=== PATIENT | female | born 1980 | race Caucasian/White ===

== ENCOUNTER 2022-10-25 08:45 | Emergency (ER) | payer OTHER, SELFPAY ==
[2022-10-25 08:52] VITALS: BP 109/79; PULSE 70; O2SAT 99; BMI 27.4
--- NOTE | 2022-10-25 09:02 | CRLHL7_ITS ---
For Patients: As a result of the Century Cures Act, medical imaging exams and procedure reports are released immediately into your electronic medical record. You may view this report before your referring provider. If you have questions, please contact your health care provider. INDICATION: LBP RIGHT SIDE TECHNIQUE: CT abdomen and pelvis without contrast, stone protocol. COMPARISON: None. FINDINGS: Kidney/ureters: Kidneys are normal in caliber. Obstructive uropathy with a 5 all mm stone at the distal right UVJ resulting and mild hydroureteronephrosis and periureteral inflammation. No additional intrarenal calculi are seen. No left hydronephrosis. The bladder is decompressed. Liver/gallbladder/bile ducts: The liver is normal in size, shape and attenuation. Gallbladder is normal without visualized stones or inflammation. No biliary dilatation. Spleen/pancreas/adrenal glands: The spleen, adrenal glands and pancreas are within normal limits. GI tract: The bowel is unremarkable. Normal appendix. Abdominal wall/omentum/peritoneum: No free air or significant free fluid. No mass or inflammation. Lymph nodes: No lymphadenopathy. Pelvis: Unremarkable pelvis. Lower chest: Unremarkable. IMPRESSION: Obstructive uropathy with a 5 mm stone at the distal right UVJ resulting and mild hydroureteronephrosis and periureteral inflammation. Please note that all CT scans at this facility use dose modulation, iterative reconstruction, and/or weight-based dosing when appropriate to reduce radiation dose to as low as reasonably achievable. Dictated by Edu Noble MD @ 10/25/2022 10:19:45 AM (Electronically Signed)
[2022-10-25 09:10] LABS: Basophils Absolute Auto 0.01 K/uL (0.00-0.30); Basophils Percent Auto 0.1 % (0.0-3.0); Eosinophils Absolute Auto 0.05 K/uL (0.00-0.50); Eosinophils Percent Auto 0.7 % (0.0-7.0); Hematocrit 40.3 % (33.0-51.0); Hemoglobin* 13.4 gm/dL (12.0-16.0); Immature Granulocytes Abs Auto 0.01 K/uL (0.00-0.30); Immature Granulocytes Pct Auto 0.1 %; Lymphocytes Absolute Auto 2.51 K/uL (0.90-2.90); Lymphocytes Percent Auto 35.7 % (20-44); Mean Corpuscular HGB Conc 33 gm/dL (32-36); Mean Corpuscular Hemoglobin 30 pg (26-34); Mean Corpuscular Volume 90 fL (80-100); Monocytes Percent Auto 8.5 % (0.0-11.0); Neutrophils Absolute Auto 3.86 K/uL (1.7-7.0); Neutrophils Percent Auto 54.9 % (42.0-72.0); Platelet Count* 335 K/uL (140-440); RDW Coefficient of Variation % 12.7 % (11.5-15.5); Red Blood Count 4.48 m/uL (4.00-5.20); White Blood Count* 7.04 K/uL (4.50-11.00)
[2022-10-25 09:11] LABS: Slide Review Reflex No
[2022-10-25] MEDS: ONDANSETRON 2 MG/ML inj 4 MG IVP (09:15)
[2022-10-25] MEDS: HYDROmorphone 0.5 mg/0.5 ml inj IVP ×2 (09:15→10:00)
[2022-10-25] MEDS: 0.9 % SODIUM CHLORIDE 1000 ml 1,000 ML IV ×2 (09:16→10:40)
[2022-10-25] MEDS: KETOROLAC 30 MG/ML inj IVP (09:16)
[2022-10-25 09:26] LABS: Albumin* 4.3 g/dL (3.3-5.0); Chloride* 110 mmol/L (96-114)
[2022-10-25 09:27] LABS: Potassium* 3.7 mmol/L (3.6-5.1); Sodium* 139 mmol/L (135-149)
[2022-10-25 09:29] LABS: Alkaline Phosphatase* 71 U/L (40-150); Aspartate Amino Transferase* 21 U/L (12-35); Bilirubin Direct* 0.1 mg/dL (0.0-0.5); Bilirubin Total* 0.4 mg/dL (0.1-1.5); Blood Urea Nitrogen* 15 mg/dL (5-24); Carbon Dioxide* 18 mmol/L (20-32); Creatinine* 0.8 mg/dL (0.5-1.5); Est. Creatinine Clearance* 73.93; Estimated Glomerular Filt Rate 95 ml/min; Glucose* 139 mg/dL (60-115); Total Protein* 7.4 g/dL (6.0-8.3)
[2022-10-25 09:30] LABS: Alanine Aminotransferase* 19 U/L (4-35); Calcium* 9.1 mg/dL (8.4-10.6); HCG Qualitative Serum* Negative (Negative); Lipase* 53 U/L (23-300)
--- NOTE | 2022-10-25 09:35 | ED_ITS ---
HPI - General Adult General Date Seen: 10/25/22 Chief complaint: Back Injury/Pain Stated complaint: Severe low back RT bag Time Seen by Provider: 10/25/22 09:00 Source: patient Mode of arrival: ambulatory Limitations: no limitations History of Present Illness HPI narrative: Patient is a very nice 42-year-old female presents here with acute onset of right flank pain radiating to her right groin, this started approximately an hour ago, she can not get feeling well, nausea associated with this but no vomiting. She I find her in some degree of pain, in room 3. She denies any numbness tingling weakness, nausea, she felt well up until this pain started, she has no previous history of this in her past. Denies any dysuria frequency fevers chills or sweats, diarrhea, or blood in her urine. She did not take anything for the pain,, promptly came to the emergency room. Related Data Home Medications Medication Instructions Recorded Confirmed dupilumab 300 mg/2 mL subcutaneous 300 mg subcut .as Direc 08/27/22 08/27/22 syringe Previous Rx's Medication Instructions Recorded etonogestrel 0.12 mg-ethinyl 1 vag ring vaginal Q3W #3 ea 08/27/22 estradiol 0.015 mg/24 hr vaginal ring sumatriptan succinate 50 mg tablet 50 mg PO .As Needed as needed PRN 08/27/22 migraine headache #30 tabs Allergies Allergy/AdvReac Type Severity Reaction Status Date / Time No Known Drug Allergies Allergy Verified 08/27/22 09:14 Review of Systems Status of ROS: Reports: 10 or more systems reviewed and unremarkable except as noted in History and below PFSH PFSH Surgical History History of bilateral breast reduction surgery (2002) ?Z98.890 - Other specified postprocedural states (ICD-10) History of wisdom tooth extraction ?K08.409 - Partial loss of teeth, unspecified cause, unspecified class (ICD- 10) Family History Aunt Breast cancer Father Alcohol dependence Brother Alcohol dependence Maternal Grandfather Brain cancer Maternal Grandmother Pancreatic cancer Social History Narrative: . 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 Social EtOH. Smoking Status: Never smoker Little interest or pleasure in doing things: not at all Feeling down, depressed, or hopeless: not at all Exam Narrative: Exam Narrative: Patient is in room 3, on her side, she can not get comfortable, pupils are equal round reactive to light, no scleral icterus redness TMs normal oropharynx normal, neck is supple full range of motion chest is clear, no wheezing crackles noted heart sounds are normal, abdomen is nontender, no Ram sign, no organomegaly, no CVA tenderness, she moves her extremities independently well no swelling, normal pulses, normal sensation, and normal muscle bulk. Const: Vital Signs, click to edit/add: Vital Signs - 24 hr 10/25/22 08:52 Pulse Rate [Pulse Oximeter] 70 Blood Pressure [Ri ght Upper Arm] 109/79 Pulse Oximetry 99 Oxygen Delivery Me thod Room Air Course Course Hospital Course: Patient improved with the pain medication here she received IV Toradol, Zofran, and Dilaudid, I think on reviewing her course, exam, laboratory and radiology findings, we could treat her as an outpatient as she should pass the stone, I explained this to her and where the stone was,. An over with her the risks of going home, including increasing pain fevers chills or infection, if these occur she will come back and be seen. Otherwise I think she will passed the stone quite easily. Give her some Percocet for augment her pain. We went over the risks benefits and side effects of this. Vital Signs Vital signs: Initial Vital Signs Pulse Rate 70 10/25/22 08:52 Blood Pressure 109/79 10/25/22 08:52 Blood Pressure Mean 89 10/25/22 08:52 Blood Pressure Position Left Lateral 10/25/22 08:52 Pulse Oximetry 99 10/25/22 08:52 Oxygen Delivery Method Room Air 10/25/22 08:52 Vital Signs Pulse Rate 70 10/25/22 08:52 Blood Pressure 109/79 10/25/22 08:52 Pulse Oximetry 99 10/25/22 08:52 Oxygen Delivery Method Room Air 10/25/22 08:52 Pulse Rate 70 10/25/22 08:52 Blood Pressure 109/79 10/25/22 08:52 Pulse Oximetry 99 10/25/22 08:52 Oxygen Delivery Method Room Air 10/25/22 08:52 Medical Decision Making MDM Narrative Medical decision making narrative: During the evaluation of this patient I considered multiple differential diagnosis including life-threatening differentials which are appendicitis, aortic aneurysm, mesenteric ischemia, bowel perforation, ectopic , volvulus and bowel obstruction, other differential diagnosis include but are not limited to inflammatory bowel disease, cholecystitis, pancreatitis, hepatitis, gastritis, GERD, diverticulitis, peptic ulcer disease, pyelonephritis/UTI, renal colic/stone, pelvic inflammatory disease, cervicitis, endometritis, intrauterine , dysfunctional uterine bleeding, ovarian cyst/torsion, spontaneous as well as other etiologies Lab Data Lab results reviewed: Yes I reviewed the patient's lab results Labs: Lab Results 10/25/22 Range/Units 09:00 WBC 7.04 (4.50-11.00) K/uL RBC 4.48 (4.00-5.20) m/uL Hgb 13.4 (12.0-16.0) gm/dL Hct 40.3 (33.0-51.0) % MCV 90 (80-100) fL MCH 30 (26-34) pg MCHC 33 (32-36) gm/dL RDW Coeff of Pee 12.7 (11.5-15.5) % Plt Count 335 (140-440) K/uL Neut % (Auto) 54.9 (42.0-72.0) % Lymph % (Auto) 35.7 (20-44) % [place] % (Auto) 8.5 (0.0-11.0) % Eos % (Auto) 0.7 (0.0-7.0) % Baso % (Auto) 0.1 (0.0-3.0) % Neut # (Auto) 3.86 (1.7-7.0) K/uL Lymph # (Auto) 2.51 (0.90-2.90) K/uL [place] # (Auto) 0.60 (0.00-0.90) K/UL Eos # (Auto) 0.05 (0.00-0.50) K/uL Baso # (Auto) 0.01 (0.00-0.30) K/uL Sodium 139 (135-149) mmol/L Potassium 3.7 (3.6-5.1) mmol/L Chloride 110 (96-114) mmol/L Carbon Dioxide 18 L (20-32) mmol/L BUN 15 (5-24) mg/dL Creatinine 0.8 (0.5-1.5) mg/dL Estimated Creat Clear 73.93 Estimated GFR 95 ml/min Glucose 139 H (60-115) mg/dL Calcium 9.1 (8.4-10.6) mg/dL Total Bilirubin 0.4 (0.1-1.5) mg/dL Direct Bilirubin 0.1 (0.0-0.5) mg/dL AST 21 (12-35) U/L ALT 19 (4-35) U/L Alkaline Phosphatase 71 (40-150) U/L Total Protein 7.4 (6.0-8.3) g/dL Albumin 4.3 (3.3-5.0) g/dL Lipase 53 (23-300) U/L HCG, Qual Negative (Negative) Imaging Data CT scan - abdomen: Attestation: I have reviewed the pertinent imaging results. My impression: Right-sided moderate hydro from nephrosis, there is the 4-5 mm stone in the right ureter, at the UVJ. Radiology read pending Radiologist's impression: Patient: VARGAS JORDAN Facility:?[facility] Patient ID:?[id number] Site Patient ID:?[id number]. Site :?[id number] Study:?CT Abdomen/Pelvis STONE STUDY-10/25/2022 9:48:40 AM Ordering Physician:Lolita Renae Final Report: INDICATION: LBP RIGHT SIDE TECHNIQUE: CT abdomen and pelvis without contrast, stone protocol. COMPARISON: None. FINDINGS: Kidney/ureters: Kidneys are normal in caliber. Obstructive uropathy with a 5 all mm stone at the distal right UVJ resulting and mild hydroureteronephrosis and periureteral inflammation. No additional intrarenal calculi are seen. No left hydronephrosis. The bladder is decompressed. Liver/gallbladder/bile ducts: The liver is normal in size, shape and attenuation. Gallbladder is normal without visualized stones or inflammation. No biliary dilatation. Spleen/pancreas/adrenal glands: The spleen, adrenal glands and pancreas are within normal limits. GI tract: The bowel is unremarkable. Normal appendix. Abdominal wall/omentum/peritoneum: No free air or significant free fluid. No m ass or inflammation. Lymph nodes: No lymphadenopathy. Pelvis: Unremarkable pelvis. Lower chest: Unremarkable. IMPRESSION: Obstructive uropathy with a 5 mm stone at the distal right UVJ resulting and mild hydroureteronephrosis and periureteral inflammation. Please note that all CT scans at this facility use dose modulation, iterative reconstruction, and/or weight-based dosing when appropriate to reduce radiation dose to as low as reasonably achievable. Dictated by Edu Noble MD @ 10/25/2022 10:19:45 AM (Electronic Signature) Discharge Plan Discharge Clinical Impression: Renal colic Patient Disposition: Home w/ Parent or Adult Condition: Improved Instructions: Renal Colic (ED) Additional Instructions: Home rest ibuprofen 800 mg p.o. t.i.d. for the next 3 days. Zofran for nausea, Percocet for breakthrough pain. Would recommend rest, generous fluids, return here should be initiated if increasing abdominal pain, nausea vomiting, fever or intractable pain not relieved by medications. I believe there is a very high chance he will pass the stone on its own, there is no other kidney stones seen, for alone kidney stone common a first-time person, we do not recommend primary urology consult, you can obtain this if you want. While taking the narcotic medications please do not drive, do not use alcohol, and be off work for the next 48 hours. Please know that repeated use of narcotic medications can lead to addiction. Activity Level: No Restrictions Prescriptions: No Action dupilumab 300 mg/2 mL syringe 300 mg subcut .as Direc Rx Instructions: Inject 300 MG EVEYR OTHER WEEK etonogestrel-ethinyl estradiol 0.12-0.015 mg/24 hr ring 1 vag ring vaginal Q3W Qty: 3 4RF sumatriptan succinate 50 mg tablet 50 mg PO .As Needed as needed PRN (Reason: migraine headache) Qty: 30 4RF Rx Instructions: ONE TAB AT ONSET OF HEADACHE, MAY REPEAT Q2H PRN, MAX 200 MG/24 HRS Follow Up/Referrals: Jeronimo Hill MD [Primary Care Provider] - Stand Alone Forms: Neema Info Instructions
== END 2022-10-25 12:24 | disposition home or self-care (01) ==
PROVIDERS: Emergency Provider Family Medicine; PCP Family Medicine
DX: N23 Unspecified renal colic (principal)
CPT/HCPCS: 36415; 74176; 80048; 80076; 81001; 83690; 84703; 85025; 96374; 96375; 96376; 99284; J1170; J1885; J2405; J7030

== ENCOUNTER 2023-01-22 10:01 | Outpatient (CLI) | payer OTHER, SELFPAY ==
--- NOTE | 2023-01-22 10:15 | CRLHL7_ITS ---
For Patients: As a result of the Century Cures Act, medical imaging exams and procedure reports are released immediately into your electronic medical record. You may view this report before your referring provider. If you have questions, please contact your health care provider. BILATERAL SCREENING MAMMOGRAM WITH COMPUTER-AIDED DETECTION AND TOMOSYNTHESIS TECHNIQUE: CC and MLO views were obtained. These mammographic images have been obtained using full-field digital technique. These mammographic images were interpreted with the benefit of computer-aided detection. Breast Tomosynthesis was used in this interpretation. COMPARISON FILM: Baseline. FINDINGS: The breasts are heterogeneously dense, which may obscure small masses IMPRESSION: There is no radiographic evidence for malignancy. ASSESSMENT: BI-RADS Category 1: Negative RECOMMENDATION: Routine screening mammogram in 1 year. A lay language report of this examination will be provided to the patient. Kalpesh Sandoval M.D. Diagnostic Radiologist [email or web address] [email or web address] Transcribed: 4:06 p.blaire ortega/Dictated by: Kalpesh Sandoval MD @ 01/22/2023 1:58:00 PM (Electronically Signed)
== END 2023-01-22 10:02 | disposition home or self-care (01) ==
LOC: MAMMO 10:02
PROVIDERS: PCP Family Medicine; Visit Provider Obstetrics & Gynecology
DX: Z12.31 Encounter for screening mammogram for malignant neoplasm of breast (principal); R92.2 Inconclusive mammogram
CPT/HCPCS: 77063; 77067

== ENCOUNTER 2023-10-12 09:25 | Outpatient (CLI) | payer OTHER, SELFPAY | END 2023-10-12 09:26 | disposition home or self-care (01) | PROVIDERS: PCP Family Medicine; Visit Provider Obstetrics & Gynecology | DX: Z13.220 Encounter for screening for lipoid disorders (principal); Z13.1 Encounter for screening for diabetes mellitus | CPT/HCPCS: 80061; 82947 ==

== ENCOUNTER 2024-03-08 16:21 | Outpatient (CLI) | payer OTHER, SELFPAY ==
--- NOTE | 2024-03-08 17:00 | CRLHL7_ITS ---
For Patients: As a result of the Century Cures Act, medical imaging exams and procedure reports are released immediately into your electronic medical record. You may view this report before your referring provider. If you have questions, please contact your health care provider. BILATERAL SCREENING MAMMOGRAM WITH COMPUTER-AIDED DETECTION AND TOMOSYNTHESIS TECHNIQUE: CC and MLO views were obtained. These mammographic images have been obtained using full-field digital technique. These mammographic images were interpreted with the benefit of computer-aided detection. Breast Tomosynthesis was used in this interpretation. COMPARISON FILM: 01/22/23. FINDINGS: There are scattered areas of fibroglandular density IMPRESSION: There is no radiographic evidence for malignancy. ASSESSMENT: BI-RADS Category 1: Negative RECOMMENDATION: Routine screening mammogram in 1 year. A lay language report of this examination will be provided to the patient. Kalpesh Sandoval M.D. Diagnostic Radiologist [email or web address] [email or web address] Transcribed: 4:19 p.blaire ortega/Dictated by: Kalpesh Sandoval MD @ 03/09/2024 9:20:00 AM (Electronically Signed)
== END 2024-03-08 16:22 | disposition home or self-care (01) ==
LOC: MAMMO 16:22
PROVIDERS: PCP Family Medicine; Visit Provider Obstetrics & Gynecology
DX: Z12.31 Encounter for screening mammogram for malignant neoplasm of breast (principal)
CPT/HCPCS: 77063; 77067

== ENCOUNTER 2025-06-09 08:48 | Outpatient (CLI) | payer OTHER, SELFPAY ==
--- NOTE | 2025-06-09 09:15 | CRLHL7_ITS ---
For Patients: As a result of the Century Cures Act, medical imaging exams and procedure reports are released immediately into your electronic medical record. You may view this report before your referring provider. If you have questions, please contact your health care provider. INDICATION: BILATERAL SCREENING MAMMOGRAM, ASYMPTOMATIC 45 Y/O FEMALE COMPARISON: 03/08/2024, 01/22/2023 TECHNIQUE: Digital mammogram in CC and MLO projections including computer-aided detection (CAD) and tomosynthesis. BREAST COMPOSITION: The breasts are heterogeneously dense, which may obscure small masses. FINDINGS: No suspicious findings. ASSESSMENT: BI-RADS 1 Negative RECOMMENDATION: Annual screening mammogram. A lay language report of this examination will be provided to the patient. Dictated by: Kalpesh Sandoval MD @ 06/12/2025 10:09:11 (Electronically Signed)
== END 2025-06-09 08:49 | disposition home or self-care (01) ==
LOC: MAMMO 08:49
PROVIDERS: PCP Family Medicine; Visit Provider Obstetrics & Gynecology
DX: Z12.31 Encounter for screening mammogram for malignant neoplasm of breast (principal); R92.333 Mammographic heterogeneous density, bilateral breasts
CPT/HCPCS: 77063; 77067